=== PATIENT | male | born 1975 | race Two or more races ===

== ENCOUNTER 2020-04-19 07:12 | Emergency (ER) | payer OTHER ==
[~2020-04-19] VITALS: Ht 182.9 cm; Wt 99.8 kg
[2020-04-19 08:00] VITALS: BP 123/91
[2020-04-19] MEDS ORDERED: TETANUS-DIPTH-ACEL PERTUSSIS 0.5ML SYR Tdap IM ONE (09:30)
[2020-04-19] MEDS ORDERED: HYDROcodone-ACET 5/325MG TAB PO ONE (10:30)
== END 2020-04-19 10:47 ==
LOC: ER 07:12 → EEVIPCON 07:12 → ER 10:47
DX: S01.411A Laceration without foreign body of right cheek and temporomandibular area, initial encounter (principal); S05.11XA Contusion of eyeball and orbital tissues, right eye, initial encounter; Y04.0XXA Assault by unarmed brawl or fight, initial encounter; Y93.89 Activity, other specified; Y92.89 Other specified places as the place of occurrence of the external cause; Y99.8 Other external cause status
CPT/HCPCS: 12013; 70450; 70486; 72125; 90471; 90715